=== PATIENT | male | born 1980 | race African-American/Black ===

== ENCOUNTER 2020-11-28 14:16 | Inpatient (IN) | payer BC ==
[2020-11-28] MEDS ORDERED: ONDANSETRON 4 MG/2 ML VIAL IVPUSH ONE (15:55)
[2020-11-28] MEDS ORDERED: LABETALOL HCL 5 MG/1 ML (100MG/20 ML VIAL) IVPUSH ONE (16:08)
[2020-11-28] MEDS ORDERED: amLODIPine BESYLATE 5 MG TABLET (FP) PO ONE (16:09)
[2020-11-28 17:12] LABS: INR 1.07 (0.83-1.09); PROTHROMBIN TIME (PATIENT) 12.9 SEC (9.7-13.0)
[2020-11-28] MEDS ORDERED: SODIUM CHLORIDE 250 ML IV PRN (17:26)
[2020-11-28 17:28] LABS: BASO % 1.4 % (0-2.0); HEMATOCRIT 46.3 % (35.4-49); HEMOGLOBIN 15.7 GM/dL (11.7-16.9); LYMPH % 6.9 % (8-40); MCHC 33.9 g/dl (32.0-35.9); MEAN CELL VOLUME 85.7 fl (80-96); MEAN PLT VOLUME 8.9 fl (7.5-11.1); MONO % 4.8 % (3.8-10.2); NEUT % 86.9 % (42.8-82.8); PLATELET COUNT 113 K/MM3 (134-434); RDW 15.9 % (11.9-15.9); WHITE BLOOD COUNT 12.2 K/mm3 (4.0-10.0)
[2020-11-28] MEDS ORDERED: ONDANSETRON *ODT* 4 MG TABLET SL ONE (18:34)
[2020-11-28 18:42] LABS: POTASSIUM 4.8 mmol/L (3.5-5.1)
[2020-11-28 18:43] LABS: CALCIUM 8.5 mg/dL (8.5-10.1)
[2020-11-28 18:44] LABS: MAGNESIUM 1.5 mg/dL (1.8-2.4)
[2020-11-28 18:47] LABS: PHOSPHOROUS 4.4 mg/dL (2.5-4.9)
[2020-11-28 18:57] LABS: BLOOD UREA NITROGEN 138.4 mg/dL (7-18); CREATININE 21.5 mg/dL (0.55-1.3)
[2020-11-28 19:12] LABS: N-TERMINAL BNP 70346.4 pg/ml (5-125)
[2020-11-28] MEDS ORDERED: amLODIPine BESYLATE 5 MG TABLET (FP) ONE (19:16)
[2020-11-28] MEDS ORDERED: ONDANSETRON *ODT* 4 MG TABLET ONE (19:16)
[2020-11-28] MEDS: INSULIN SLIDING SCALE (NOVOLOG) 1 VIAL SQ SCH (23:02)
[2020-11-28] MEDS ORDERED: HEPARIN NA (PORCINE) 5,000 UNITS/ML 1ML VIAL ONE (23:56)
[2020-11-29] MEDS: HEPARIN NA (PORCINE) 5,000 UNITS/ML 1ML VIAL SQ SCH ×4 (00:23→22:29)
[2020-11-29] MEDS ORDERED: FAMOTIDINE 20 MG TABLET PO ONE (05:18)
[2020-11-29] MEDS ORDERED: HEPARIN NA (PORCINE) 5,000 UNITS/ML 1ML VIAL ONE ×2 (05:26→17:41)
[2020-11-29] MEDS: INSULIN SLIDING SCALE (NOVOLOG) 1 VIAL SQ SCH ×8 (08:40→22:29)
[2020-11-29 09:00] LABS: HEMATOCRIT 36.1 % (35.4-49); HEMOGLOBIN 12.2 GM/dL (11.7-16.9); LYMPH % 6.6 % (8-40); MCH 28.9 pg (25.7-33.7); MCHC 33.9 g/dl (32.0-35.9); MEAN CELL VOLUME 85.2 fl (80-96); MEAN PLT VOLUME 9.5 fl (7.5-11.1); NEUT % 86.4 % (42.8-82.8); PLATELET COUNT 86 K/MM3 (134-434); RBC 4.24 M/mm3 (4.00-5.60); RDW 15.3 % (11.9-15.9); WHITE BLOOD COUNT 11.7 K/mm3 (4.0-10.0)
[2020-11-29 09:17] LABS: POTASSIUM 4.1 mmol/L (3.5-5.1)
[2020-11-29 09:31] LABS: ALBUMIN 2.6 g/dl (3.4-5.0); MAGNESIUM 1.6 mg/dL (1.8-2.4)
[2020-11-29 09:34] LABS: BILIRUBIN,TOTAL 0.5 mg/dL (0.2-1); PHOSPHOROUS 4.3 mg/dL (2.5-4.9)
[2020-11-29 09:47] LABS: BLOOD UREA NITROGEN 98.9 mg/dL (7-18)
[2020-11-29 09:58] LABS: CREATININE 16.4 mg/dL (0.55-1.3)
[2020-11-29] MEDS ORDERED: SODIUM CHLORIDE 250 ML IV PRN (11:10)
[2020-11-29] MEDS ORDERED: MAG HYDROX/AL HYDROX/SIMETH 30 ML UNIT-DOSE CUP PO PRN (11:20)
[2020-11-29] MEDS ORDERED: ONDANSETRON 4 MG/2 ML VIAL IVPUSH PRN (11:21)
[2020-11-29] MEDS ORDERED: FAMOTIDINE 20 MG/50 ML IVPB 20 MG/50 ML MG IVPB SCH (11:30)
[2020-11-29] MEDS ORDERED: amLODIPine BESYLATE 5 MG TABLET (FP) ONE (11:31)
[2020-11-29] MEDS ORDERED: MAG HYDROX/AL HYDROX/SIMETH 30 ML UNIT-DOSE CUP ONE (11:31)
[2020-11-29] MEDS: amLODIPine BESYLATE 5 MG TABLET (FP) PO SCH (11:38)
[2020-11-29] MEDS: LABETALOL HCL 100 MG TABLET (FP) PO SCH ×2 (12:29→22:29)
[2020-11-29] MEDS: PANTOPRAZOLE 20 MG TABLET PO SCH (12:29)
[2020-11-29] MEDS ORDERED: cloNIDine HCL 0.1 MG TABLET PO ONE (12:45)
[2020-11-29] MEDS ORDERED: cloNIDine HCL 0.1 MG TABLET ONE (17:41)
[2020-11-29] MEDS: INSULIN (LEVEMIR) 100 UNITS/ML UNITS SQ SCH (22:29)
[2020-11-29 23:50] VITALS: BMI 27.9
[2020-11-30] MEDS: INSULIN SLIDING SCALE (NOVOLOG) 1 VIAL SQ SCH ×7 (06:46→22:18)
[2020-11-30] MEDS: HEPARIN NA (PORCINE) 5,000 UNITS/ML 1ML VIAL SQ SCH (06:46)
[2020-11-30] MEDS: amLODIPine BESYLATE 5 MG TABLET (FP) PO SCH (09:49)
[2020-11-30] MEDS: PANTOPRAZOLE 20 MG TABLET PO SCH (09:49)
[2020-11-30] MEDS: LABETALOL HCL 100 MG TABLET (FP) PO SCH ×2 (09:49→22:16)
[2020-11-30 13:24] LABS: BASO % 1.8 % (0-2.0); HEMATOCRIT 30.9 % (35.4-49); HEMOGLOBIN 10.5 GM/dL (11.7-16.9); LYMPH % 15.1 % (8-40); MCH 29.3 pg (25.7-33.7); MCHC 33.8 g/dl (32.0-35.9); MEAN CELL VOLUME 86.5 fl (80-96); MEAN PLT VOLUME 9.7 fl (7.5-11.1); MONO % 7.7 % (3.8-10.2); NEUT % 74.4 % (42.8-82.8); PLATELET COUNT 88 K/MM3 (134-434); RBC 3.57 M/mm3 (4.00-5.60); RDW 15.4 % (11.9-15.9); WHITE BLOOD COUNT 7.5 K/mm3 (4.0-10.0)
[2020-11-30 13:43] LABS: POTASSIUM 3.7 mmol/L (3.5-5.1)
[2020-11-30 13:46] LABS: CALCIUM 7.9 mg/dL (8.5-10.1)
[2020-11-30] MEDS ORDERED: HEPARIN NA (PORCINE) 5,000 UNITS/ML 1ML VIAL IVPUSH PRN (13:53)
[2020-11-30 13:58] LABS: BLOOD UREA NITROGEN 73.1 mg/dL (7-18)
[2020-11-30] MEDS ORDERED: HEPARIN - 25,000 UNIT in SODIUM CHLORIDE 495 ML IV SCH (14:00)
[2020-11-30 14:01] LABS: CREATININE 13.3 mg/dL (0.55-1.3)
[2020-11-30] MEDS: HEPARIN - 25,000 UNIT in SODIUM CHLORIDE 495 ML IV SCH (15:57)
[2020-11-30] MEDS ORDERED: SODIUM CHLORIDE 250 ML IV PRN (18:15)
[2020-11-30] MEDS: INSULIN (LEVEMIR) 100 UNITS/ML UNITS SQ SCH (22:16)
[2020-11-30] MEDS: HEPARIN NA (PORCINE) 5,000 UNITS/ML 1ML VIAL IVPUSH PRN (23:10)
[2020-12-01] MEDS: INSULIN SLIDING SCALE (NOVOLOG) 1 VIAL SQ SCH ×4 (06:32→22:03)
[2020-12-01] MEDS: HEPARIN NA (PORCINE) 5,000 UNITS/ML 1ML VIAL IVPUSH PRN (09:04)
[2020-12-01] MEDS ORDERED: ALTEPLASE 2 MG VIAL CVP ONE ×2 (09:45)
[2020-12-01] MEDS ORDERED: LABETALOL HCL 100 MG TABLET (FP) PO SCH (11:12)
[2020-12-01] MEDS: amLODIPine BESYLATE 5 MG TABLET (FP) PO SCH (12:15)
[2020-12-01] MEDS: LABETALOL HCL 100 MG TABLET (FP) PO SCH ×3 (12:15→22:03)
[2020-12-01 13:24] LABS: HEMATOCRIT 26.9 % (35.4-49); HEMOGLOBIN 9.2 GM/dL (11.7-16.9); MCH 29.2 pg (25.7-33.7); MCHC 34.1 g/dl (32.0-35.9); MEAN CELL VOLUME 85.7 fl (80-96); MEAN PLT VOLUME 10.2 fl (7.5-11.1); PLATELET COUNT 103 K/MM3 (134-434); RBC 3.14 M/mm3 (4.00-5.60); RDW 15.2 % (11.9-15.9); WHITE BLOOD COUNT 6.9 K/mm3 (4.0-10.0)
[2020-12-01 13:51] LABS: ALBUMIN 2.6 g/dl (3.4-5.0); BLOOD UREA NITROGEN 54.2 mg/dL (7-18); CALCIUM 7.8 mg/dL (8.5-10.1)
[2020-12-01 13:52] LABS: MAGNESIUM 1.8 mg/dL (1.8-2.4)
[2020-12-01 13:55] LABS: PHOSPHOROUS 1.9 mg/dL (2.5-4.9)
[2020-12-01 13:56] LABS: BILIRUBIN,TOTAL 0.5 mg/dL (0.2-1); TOT PROT 5.1 g/dl (6.4-8.2)
[2020-12-01 14:02] LABS: CREATININE 9.2 mg/dL (0.55-1.3)
[2020-12-01] MEDS: HEPARIN - 25,000 UNIT in SODIUM CHLORIDE 495 ML IV SCH (15:37)
[2020-12-01] MEDS ORDERED: MAGNESIUM HYDROX 2400MG/30ML ORAL SUSPENSION 30 ML CUP PO PRN (19:04)
[2020-12-01] MEDS: INSULIN (LEVEMIR) 100 UNITS/ML UNITS SQ SCH (22:01)
[2020-12-02] MEDS: INSULIN SLIDING SCALE (NOVOLOG) 1 VIAL SQ SCH ×4 (06:18→21:29)
[2020-12-02] MEDS: amLODIPine BESYLATE 5 MG TABLET (FP) PO SCH ×2 (08:57→19:44)
[2020-12-02] MEDS: LABETALOL HCL 100 MG TABLET (FP) PO SCH ×4 (08:57→21:29)
[2020-12-02 09:10] LABS: HEMATOCRIT 27.2 % (35.4-49); HEMOGLOBIN 9.3 GM/dL (11.7-16.9); MCH 29.5 pg (25.7-33.7); MCHC 34.3 g/dl (32.0-35.9); MEAN CELL VOLUME 86.1 fl (80-96); MEAN PLT VOLUME 10.1 fl (7.5-11.1); PLATELET COUNT 134 K/MM3 (134-434); RBC 3.16 M/mm3 (4.00-5.60); RDW 15.1 % (11.9-15.9); WHITE BLOOD COUNT 5.9 K/mm3 (4.0-10.0)
[2020-12-02] MEDS ORDERED: amLODIPine BESYLATE 5 MG TABLET (FP) PO ONE ×2 (10:17→16:45)
[2020-12-02 10:25] LABS: BLOOD UREA NITROGEN 33.5 mg/dL (7-18); CALCIUM 8.1 mg/dL (8.5-10.1); MAGNESIUM 1.8 mg/dL (1.8-2.4); PHOSPHOROUS 3.6 mg/dL (2.5-4.9); POTASSIUM 3.3 mmol/L (3.5-5.1)
[2020-12-02 10:32] LABS: CREATININE 9.1 mg/dL (0.55-1.3)
[2020-12-02 11:55] LABS: INR 1.05 (0.83-1.09); PROTHROMBIN TIME (PATIENT) 12.7 SEC (9.7-13.0)
[2020-12-02 11:58] LABS: ACTIVATED PTT 52.4 SECONDS (25.2-36.5)
[2020-12-02] MEDS: HEPARIN - 25,000 UNIT in SODIUM CHLORIDE 495 ML IV SCH ×2 (12:19→15:32)
[2020-12-02] MEDS ORDERED: SODIUM CHLORIDE 250 ML IV PRN (13:19)
[2020-12-02] MEDS ORDERED: hydrALAZINE HCL 10 MG TABLET PO SCH (14:00)
[2020-12-02] MEDS: hydrALAZINE HCL 10 MG TABLET PO SCH ×2 (20:14→21:28)
[2020-12-02] MEDS: INSULIN (LEVEMIR) 100 UNITS/ML UNITS SQ SCH (21:28)
[2020-12-03] MEDS: hydrALAZINE HCL 10 MG TABLET PO SCH ×2 (06:33→15:17)
[2020-12-03] MEDS: INSULIN SLIDING SCALE (NOVOLOG) 1 VIAL SQ SCH ×2 (06:34→12:08)
[2020-12-03 08:21] LABS: BASO % 1.3 % (0-2.0); EOS % 3.2 % (0-4.5); HEMATOCRIT 28.6 % (35.4-49); HEMOGLOBIN 9.7 GM/dL (11.7-16.9); LYMPH % 11.8 % (8-40); MCH 29.5 pg (25.7-33.7); MCHC 33.9 g/dl (32.0-35.9); MEAN CELL VOLUME 86.8 fl (80-96); MEAN PLT VOLUME 9.4 fl (7.5-11.1); MONO % 8.4 % (3.8-10.2); NEUT % 75.3 % (42.8-82.8); PLATELET COUNT 154 K/MM3 (134-434); RBC 3.29 M/mm3 (4.00-5.60); RDW 15.3 % (11.9-15.9); WHITE BLOOD COUNT 6.5 K/mm3 (4.0-10.0)
[2020-12-03 08:29] LABS: INR 0.96 (0.83-1.09); PROTHROMBIN TIME (PATIENT) 11.8 SEC (9.7-13.0)
[2020-12-03 08:58] LABS: POTASSIUM 3.5 mmol/L (3.5-5.1)
[2020-12-03 09:05] LABS: CALCIUM 8.6 mg/dL (8.5-10.1)
[2020-12-03 09:06] LABS: ALBUMIN 2.8 g/dl (3.4-5.0); BLOOD UREA NITROGEN 43.5 mg/dL (7-18); MAGNESIUM 2.1 mg/dL (1.8-2.4)
[2020-12-03 09:09] LABS: PHOSPHOROUS 4.1 mg/dL (2.5-4.9)
[2020-12-03 09:10] LABS: TOT PROT 5.4 g/dl (6.4-8.2)
[2020-12-03 09:11] LABS: BILIRUBIN,TOTAL 0.8 mg/dL (0.2-1)
[2020-12-03 09:58] LABS: ACTIVATED PTT 29.6 SECONDS (25.2-36.5)
[2020-12-03] MEDS: LABETALOL HCL 100 MG TABLET (FP) PO SCH ×2 (10:36→12:31)
[2020-12-03] MEDS: amLODIPine BESYLATE 10 MG TABLET (FP) PO SCH ×2 (10:36→12:31)
[2020-12-03 12:35] VITALS: TEMP 98.8
[2020-12-03 16:29] VITALS: BP 139/93; PULSE 94
== END 2020-12-03 16:45 | disposition home or self-care (01) | DRG 291 ==
LOC: JER 14:16 → JERBED 18:47 → J6S 11-29 21:21
PROVIDERS: ADMIT Internal Medicine; ATTEND Student in an Organized Health Care Education/Training Program
PROC: 5A1D70Z Performance of Urinary Filtration, Intermittent, Less than 6 Hours Per Day (ICD-10-PCS; principal; 2020-11-28)
PROC: 5A1D70Z Performance of Urinary Filtration, Intermittent, Less than 6 Hours Per Day (ICD-10-PCS; 2020-11-29)
PROC: 5A1D70Z Performance of Urinary Filtration, Intermittent, Less than 6 Hours Per Day (ICD-10-PCS; 2020-12-01)
PROC: 5A1D70Z Performance of Urinary Filtration, Intermittent, Less than 6 Hours Per Day (ICD-10-PCS; 2020-12-03)
DX: I13.2 Hypertensive heart and chronic kidney disease with heart failure and with stage 5 chronic kidney disease, or end stage renal disease (principal); N18.6 End stage renal disease; I24.8 Other forms of acute ischemic heart disease; T82.868A Thrombosis due to vascular prosthetic devices, implants and grafts, initial encounter; R00.0 Tachycardia, unspecified; E11.22 Type 2 diabetes mellitus with diabetic chronic kidney disease; E11.65 Type 2 diabetes mellitus with hyperglycemia; E83.42 Hypomagnesemia; I16.0 Hypertensive urgency; D69.6 Thrombocytopenia, unspecified; Y83.8 Other surgical procedures as the cause of abnormal reaction of the patient, or of later complication, without mention of misadventure at the time of the procedure; Z99.2 Dependence on renal dialysis; I50.9 Heart failure, unspecified; D63.1 Anemia in chronic kidney disease
CPT/HCPCS: 36415; 36598; 71045-TC-FY; 76775-TC; 80048; 80053; 80061; 82550; 82553; 82962; 83036; 83605; 83690; 83721; 83735; 83880; 84100; 84443; 84484; 85025; 85027; 85610; 85730; 86803; 87040; 87340; 93005; 93010; 93306-TC; 99285-25; C9803; J0735; J1644; J2997; Q0162; U0003

== ENCOUNTER 2021-11-16 12:38 | Observation (INO) | payer BC ==
[2021-11-16 13:44] LABS: EOS % 0.1 % (0-4.5); HEMATOCRIT 37.1 % (35.4-49); HEMOGLOBIN 12.3 GM/dL (11.7-16.9); LYMPH % 7.1 % (8-40); MCH 28.8 pg (25.7-33.7); MCHC 33.3 g/dl (32.0-35.9); MEAN CELL VOLUME 86.7 fl (80-96); MEAN PLT VOLUME 8.4 fl (7.5-11.1); MONO % 5.5 % (3.8-10.2); NEUT % 86.3 % (42.8-82.8); PLATELET COUNT 221 10^3/uL (134-434); RBC 4.28 M/mm3 (4.00-5.60); RDW 14.3 % (11.9-15.9); WHITE BLOOD COUNT 8.3 K/mm3 (4.0-10.0)
[2021-11-16 13:49] LABS: INR 1.13 (0.83-1.09)
[2021-11-16 13:52] LABS: ACTIVATED PTT 32.6 SECONDS (25.2-36.5)
[2021-11-16 14:09] LABS: CHLORIDE 98 mmol/L (98-107); SODIUM 133 mmol/L (136-145)
[2021-11-16 14:11] LABS: CALCIUM 9.4 mg/dL (8.5-10.1)
[2021-11-16 14:12] LABS: ALBUMIN 4.5 g/dl (3.4-5.0); ANION GAP 9 MMOL/L (8-16); BLOOD UREA NITROGEN 34.9 mg/dL (7-18); CO2 26 mmol/L (21-32); GLUCOSE,RANDOM 191 mg/dL (74-106); MAGNESIUM 2.4 mg/dL (1.8-2.4)
[2021-11-16 14:15] LABS: SGOT/AST 9 U/L (15-37); SGPT/ALT 19 U/L (13-61)
[2021-11-16 14:16] LABS: BILIRUBIN,TOTAL 0.4 mg/dL (0.2-1); TOT PROT 8.5 g/dl (6.4-8.2)
[2021-11-16 14:18] LABS: ALK PHOS 56 U/L (45-117)
[2021-11-16 14:23] LABS: CREATININE 11.1 mg/dL (0.55-1.3)
[2021-11-16] MEDS: ASPIRIN COATED 81 MG TABLET.EC PO SCH (15:30)
[2021-11-16] MEDS: INSULIN SLIDING SCALE (NOVOLOG) 1 VIAL SQ SCH ×2 (16:45→22:50)
[2021-11-16] MEDS ORDERED: ASPIRIN COATED 81 MG TABLET.EC ONE (21:13)
[2021-11-16] MEDS: CARVEDILOL 3.125 MG TABLET (FP) PO SCH (22:50)
[2021-11-16 22:58] VITALS: BMI 24.0
[2021-11-17] MEDS ORDERED: HEPARIN NA (PORCINE) 5,000 UNITS/ML 1ML VIAL IVPUSH PRN ×2 (03:46)
[2021-11-17] MEDS ORDERED: HEPARIN NA (PORCINE) 5,000 UNITS/ML 1ML VIAL IVPUSH ONE (03:46)
[2021-11-17] MEDS ORDERED: HEPARIN INFUSION - 25,000 UNITS/500 ML INFUS.BAG IVPB SCH (04:00)
[2021-11-17 06:13] LABS: HEMATOCRIT 33.8 % (35.4-49); HEMOGLOBIN 11.2 GM/dL (11.7-16.9); MCH 28.8 pg (25.7-33.7); MCHC 33.2 g/dl (32.0-35.9); MEAN CELL VOLUME 86.7 fl (80-96); MEAN PLT VOLUME 8.9 fl (7.5-11.1); PLATELET COUNT 219 10^3/uL (134-434); RDW 14.1 % (11.9-15.9); WHITE BLOOD COUNT 7.6 K/mm3 (4.0-10.0)
[2021-11-17] MEDS: INSULIN SLIDING SCALE (NOVOLOG) 1 VIAL SQ SCH ×3 (06:40→16:54)
[2021-11-17] MEDS ORDERED: CLOPIDOGREL BISULFATE 300 MG TABLET PO ONE (09:00)
[2021-11-17] MEDS ORDERED: amLODIPine BESYLATE 5 MG TABLET (FP) PO SCH (10:00)
[2021-11-17] MEDS: CARVEDILOL 3.125 MG TABLET (FP) PO SCH (11:30)
[2021-11-17] MEDS: ASPIRIN COATED 81 MG TABLET.EC PO SCH (11:30)
[2021-11-17] MEDS ORDERED: EPOETIN ALFA-EPBX 4,000 UNIT/ML VIAL SQ ONE (11:32)
[2021-11-17] MEDS ORDERED: SODIUM CHLORIDE 250 ML IV PRN (11:32)
[2021-11-17] MEDS ORDERED: amLODIPine BESYLATE 5 MG TABLET (FP) PO ONE (17:14)
[2021-11-17 18:20] VITALS: BP 145/108; PULSE 76; TEMP 98.7
[2021-11-17] MEDS ORDERED: ATORVASTATIN CA 40 MG TABLET (FP) PO SCH (22:00)
[2021-11-18] MEDS ORDERED: CLOPIDOGREL BISULFATE 75 MG TABLET (FP) PO SCH (10:00)
== END 2021-11-17 19:32 | disposition short-term general hospital (02) ==
LOC: JER 12:38 → UNDOADMOB 14:50 → INTOOBSV 14:50 → JERBED 14:50 → J4S 22:34
PROVIDERS: ADMIT Internal Medicine; ATTEND Internal Medicine
PROC: 3E033GC Introduction of Other Therapeutic Substance into Peripheral Vein, Percutaneous Approach (ICD-10-PCS; principal; 2021-11-16)
PROC: 3E033GC Introduction of Other Therapeutic Substance into Peripheral Vein, Percutaneous Approach (ICD-10-PCS; 2021-11-16)
DX: E11.22 Type 2 diabetes mellitus with diabetic chronic kidney disease (principal); I24.9 Acute ischemic heart disease, unspecified; N18.6 End stage renal disease; Z99.2 Dependence on renal dialysis
CPT/HCPCS: 36415; 71045-TC-FY; 80053; 80061; 82962; 83036; 83735; 84100; 84439; 84443; 84484; 85025; 85027; 85610; 85730; 86850; 86900; 86901; 93005; 93010; 93306-TC; 99285-25; C9803; G0378; J1644; U0003; U0005

== ENCOUNTER 2021-12-09 17:27 | Inpatient (IN) | payer BC ==
[2021-12-09 17:56] VITALS: BMI 27.2
[2021-12-09] MEDS ORDERED: LABETALOL HCL 5 MG/1 ML (100MG/20 ML VIAL) IVPUSH ONE (18:34)
[2021-12-09] MEDS ORDERED: LABETALOL HCL 5 MG/1 ML (200MG/40ML VIAL) IVPB ONE (18:38)
[2021-12-09 18:56] LABS: BASO % 1.4 % (0-2.0); HEMATOCRIT 24.7 % (35.4-49); HEMOGLOBIN 8.5 GM/dL (11.7-16.9); LYMPH % 18.4 % (8-40); MCH 29.8 pg (25.7-33.7); MCHC 34.2 g/dl (32.0-35.9); MEAN CELL VOLUME 87.1 fl (80-96); MEAN PLT VOLUME 8.8 fl (7.5-11.1); MONO % 6.3 % (3.8-10.2); NEUT % 70.9 % (42.8-82.8); PLATELET COUNT 226 10^3/uL (134-434); RBC 2.84 M/mm3 (4.00-5.60); RDW 15.5 % (11.9-15.9); WHITE BLOOD COUNT 6.5 K/mm3 (4.0-10.0)
[2021-12-09] MEDS ORDERED: SODIUM CHLORIDE 250 ML IV PRN (18:58)
[2021-12-09 19:02] LABS: INR 1.06 (0.83-1.09); PROTHROMBIN TIME (PATIENT) 12.2 SEC (9.7-13.0)
[2021-12-09 19:21] LABS: CHLORIDE 102 mmol/L (98-107); SODIUM 137 mmol/L (136-145)
[2021-12-09 19:24] LABS: CALCIUM 9.1 mg/dL (8.5-10.1)
[2021-12-09 19:25] LABS: ALBUMIN 3.3 g/dl (3.4-5.0); ANION GAP 12 MMOL/L (8-16); BLOOD UREA NITROGEN 66.7 mg/dL (7-18); CO2 23 mmol/L (21-32); GLUCOSE,RANDOM 172 mg/dL (74-106); MAGNESIUM 2.1 mg/dL (1.8-2.4)
[2021-12-09 19:28] LABS: SGOT/AST 17 U/L (15-37); SGPT/ALT 34 U/L (13-61)
[2021-12-09 19:29] LABS: TOT PROT 6.2 g/dl (6.4-8.2)
[2021-12-09 19:31] LABS: BILIRUBIN,TOTAL 0.3 mg/dL (0.2-1)
[2021-12-09 19:34] LABS: ALK PHOS 46 U/L (45-117)
[2021-12-09 22:23] VITALS: TEMP 98.2
[2021-12-10] MEDS ORDERED: hydrALAZINE HCL 25 MG TABLET (FP) ONE (00:34)
[2021-12-10] MEDS ORDERED: LABETALOL HCL 100 MG TABLET (FP) ONE ×2 (00:35→09:59)
[2021-12-10] MEDS ORDERED: HEPARIN NA (PORCINE) 5,000 UNITS/ML 1ML VIAL ONE ×2 (00:35→07:52)
[2021-12-10] MEDS: hydrALAZINE HCL 50 MG TABLET (FP) PO SCH ×2 (00:42→09:25)
[2021-12-10] MEDS: LABETALOL HCL 200 MG TABLET (FP) PO SCH ×2 (00:43→10:03)
[2021-12-10] MEDS: HEPARIN NA (PORCINE) 5,000 UNITS/ML 1ML VIAL SQ SCH ×2 (00:43→08:03)
[2021-12-10 06:27] LABS: CHLORIDE 104 mmol/L (98-107); SODIUM 141 mmol/L (136-145)
[2021-12-10 06:31] LABS: CALCIUM 8.4 mg/dL (8.5-10.1)
[2021-12-10 06:32] LABS: ALBUMIN 3.3 g/dl (3.4-5.0); ANION GAP 8 MMOL/L (8-16); CO2 29 mmol/L (21-32); GLUCOSE,RANDOM 120 mg/dL (74-106); MAGNESIUM 2.1 mg/dL (1.8-2.4)
[2021-12-10 06:35] LABS: PHOSPHOROUS 3.9 mg/dL (2.5-4.9); SGOT/AST 11 U/L (15-37); SGPT/ALT 32 U/L (13-61)
[2021-12-10 06:36] LABS: BILIRUBIN,TOTAL 0.3 mg/dL (0.2-1)
[2021-12-10 06:37] LABS: TOT PROT 6.3 g/dl (6.4-8.2)
[2021-12-10 06:38] LABS: ALK PHOS 45 U/L (45-117)
[2021-12-10 07:18] LABS: BASO % 1.2 % (0-2.0); EOS % 1.2 % (0-4.5); HEMATOCRIT 26.7 % (35.4-49); LYMPH % 9.2 % (8-40); MCH 29.3 pg (25.7-33.7); MCHC 33.7 g/dl (32.0-35.9); MEAN CELL VOLUME 86.9 fl (80-96); MEAN PLT VOLUME 8.5 fl (7.5-11.1); NEUT % 82.4 % (42.8-82.8); PLATELET COUNT 225 10^3/uL (134-434); RBC 3.07 M/mm3 (4.00-5.60); RDW 15.2 % (11.9-15.9); WHITE BLOOD COUNT 6.1 K/mm3 (4.0-10.0)
[2021-12-10 07:55] LABS: BLOOD UREA NITROGEN 32.3 mg/dL (7-18); CREATININE 9.7 mg/dL (0.55-1.3)
[2021-12-10] MEDS ORDERED: SEVELAMER CARBONATE 800 MG TAB (FP) PO SCH (08:00)
[2021-12-10 09:55] VITALS: BP 154/99; PULSE 78
[2021-12-10] MEDS ORDERED: PANTOPRAZOLE 40 MG TABLET ONE (09:58)
[2021-12-10] MEDS ORDERED: LISINOPRIL 20 MG TABLET ONE (09:59)
[2021-12-10] MEDS ORDERED: amLODIPine BESYLATE 10 MG TABLET (FP) ONE (09:59)
[2021-12-10] MEDS ORDERED: LISINOPRIL 20 MG TABLET PO SCH (10:00)
[2021-12-10] MEDS ORDERED: PANTOPRAZOLE 40 MG TABLET PO SCH (10:00)
[2021-12-10] MEDS ORDERED: amLODIPine BESYLATE 10 MG TABLET (FP) PO SCH (10:00)
== END 2021-12-10 11:11 | disposition home or self-care (01) | DRG 304 ==
LOC: JER 17:27 → JERBED 18:59 → OBSVTOIN 18:59
PROVIDERS: ADMIT Internal Medicine; ATTEND Nurse Practitioner Acute Care
PROC: 5A1D70Z Performance of Urinary Filtration, Intermittent, Less than 6 Hours Per Day (ICD-10-PCS; principal; 2021-12-09)
DX: I16.0 Hypertensive urgency (principal); N18.6 End stage renal disease; I12.0 Hypertensive chronic kidney disease with stage 5 chronic kidney disease or end stage renal disease; Z99.2 Dependence on renal dialysis; E11.22 Type 2 diabetes mellitus with diabetic chronic kidney disease; D63.1 Anemia in chronic kidney disease; E11.65 Type 2 diabetes mellitus with hyperglycemia
CPT/HCPCS: 36415; 71046-TC-FY; 80053; 82728; 83540; 83550; 83735; 84100; 84484; 85025; 85045; 85610; 86803; 87340; 93005; 93010; 99285-25; C9803-CS; G0378; U0003; U0005

== ENCOUNTER 2022-01-15 18:39 | Observation (INO) | payer BC ==
[2022-01-15 18:49] VITALS: BMI 27.6
[2022-01-15 22:28] LABS: BASO % 1.6 % (0-2.0); EOS % 1.9 % (0-4.5); HEMATOCRIT 32.6 % (35.4-49); HEMOGLOBIN 10.7 GM/dL (11.7-16.9); LYMPH % 9.5 % (8-40); MCH 29.6 pg (25.7-33.7); MCHC 32.9 g/dl (32.0-35.9); MEAN CELL VOLUME 89.9 fl (80-96); MONO % 5.7 % (3.8-10.2); NEUT % 81.3 % (42.8-82.8); PLATELET COUNT 338 10^3/uL (134-434); RBC 3.63 M/mm3 (4.00-5.60); WHITE BLOOD COUNT 11.2 K/mm3 (4.0-10.0)
[2022-01-15 22:48] LABS: CHLORIDE 104 mmol/L (98-107); SODIUM 142 mmol/L (136-145)
[2022-01-15 22:50] LABS: ANION GAP 16 MMOL/L (8-16); BLOOD UREA NITROGEN 79.6 mg/dL (7-18); CALCIUM 8.3 mg/dL (8.5-10.1); CO2 23 mmol/L (21-32); GLUCOSE,RANDOM 88 mg/dL (74-106)
[2022-01-15 22:53] LABS: SGPT/ALT 40 U/L (13-61)
[2022-01-15 22:54] LABS: SGOT/AST 18 U/L (15-37)
[2022-01-15 22:55] LABS: BILIRUBIN,TOTAL 0.4 mg/dL (0.2-1); TOT PROT 6.2 g/dl (6.4-8.2)
[2022-01-15 22:56] LABS: ALK PHOS 57 U/L (45-117)
[2022-01-15 23:34] LABS: CREATININE 20.2 mg/dL (0.55-1.3)
[2022-01-16] MEDS ORDERED: SODIUM POLYSTYRENE SULFONATE 15 GM/60 ML BOTTLE PO ONE ×2 (00:04→00:16)
[2022-01-16] MEDS ORDERED: SODIUM POLYSTYRENE SULFONATE 15 GM/60 ML BOTTLE ONE (00:15)
[2022-01-16] MEDS ORDERED: CARVEDILOL 6.25 MG TABLET (FP) PO ONE (00:52)
[2022-01-16] MEDS ORDERED: CARVEDILOL 6.25 MG TABLET (FP) ONE (00:58)
[2022-01-16] MEDS ORDERED: ONDANSETRON *ODT* 4 MG TABLET SL ONE (01:00)
[2022-01-16] MEDS ORDERED: ONDANSETRON *ODT* 4 MG TABLET ONE (01:01)
[2022-01-16] MEDS ORDERED: LABETALOL HCL 5 MG/1 ML (100MG/20 ML VIAL) IVPUSH ONE ×2 (01:30→09:34)
[2022-01-16] MEDS ORDERED: LABETALOL HCL 5 MG/1 ML (200MG/40ML VIAL) IVPB ONE (02:12)
[2022-01-16 07:14] LABS: CHLORIDE 101 mmol/L (98-107); SODIUM 139 mmol/L (136-145)
[2022-01-16 07:16] LABS: CALCIUM 8.5 mg/dL (8.5-10.1); CO2 25 mmol/L (21-32); GLUCOSE,RANDOM 99 mg/dL (74-106); MAGNESIUM 2.4 mg/dL (1.8-2.4)
[2022-01-16] MEDS ORDERED: amLODIPine BESYLATE 10 MG TABLET (FP) ONE ×2 (07:24→08:37)
[2022-01-16] MEDS: amLODIPine BESYLATE 10 MG TABLET (FP) PO SCH ×2 (07:37→09:34)
[2022-01-16 07:43] LABS: ANION GAP 13 MMOL/L (8-16); CREATININE 20.3 mg/dL (0.55-1.3); PHOSPHOROUS 9.8 mg/dL (2.5-4.9)
[2022-01-16] MEDS: SEVELAMER CARBONATE 800 MG TAB (FP) PO SCH ×3 (07:51→21:29)
[2022-01-16] MEDS ORDERED: ACETAMINOPHEN 325 MG TABLET (FP) PO PRN (08:14)
[2022-01-16] MEDS ORDERED: PANTOPRAZOLE 20 MG TABLET PO ONE (08:36)
[2022-01-16] MEDS ORDERED: LISINOPRIL 20 MG TABLET ONE (08:36)
[2022-01-16] MEDS: LABETALOL HCL 200 MG TABLET (FP) PO SCH ×2 (09:34→21:29)
[2022-01-16] MEDS: LISINOPRIL 20 MG TABLET PO SCH (09:34)
[2022-01-16] MEDS: PANTOPRAZOLE 40 MG TABLET PO SCH (09:34)
[2022-01-16] MEDS: INSULIN SLIDING SCALE (NOVOLOG) 1 VIAL SQ SCH ×3 (14:44→21:30)
[2022-01-16] MEDS: HEPARIN NA (PORCINE) 5,000 UNITS/ML 1ML VIAL SQ SCH ×2 (14:45→21:31)
[2022-01-16] MEDS ORDERED: SODIUM CHLORIDE 250 ML IV PRN (14:56)
[2022-01-17] MEDS: SEVELAMER CARBONATE 800 MG TAB (FP) PO SCH ×4 (05:37→18:32)
[2022-01-17] MEDS: HEPARIN NA (PORCINE) 5,000 UNITS/ML 1ML VIAL SQ SCH ×4 (05:50→22:22)
[2022-01-17] MEDS: INSULIN SLIDING SCALE (NOVOLOG) 1 VIAL SQ SCH ×4 (06:00→22:21)
[2022-01-17 08:47] LABS: HEMATOCRIT 29.3 % (35.4-49); HEMOGLOBIN 9.7 GM/dL (11.7-16.9); MCH 29.9 pg (25.7-33.7); MCHC 33.1 g/dl (32.0-35.9); MEAN CELL VOLUME 90.3 fl (80-96); MEAN PLT VOLUME 9.2 fl (7.5-11.1); PLATELET COUNT 259 10^3/uL (134-434); RBC 3.24 M/mm3 (4.00-5.60); RDW 16.1 % (11.9-15.9); WHITE BLOOD COUNT 6.9 K/mm3 (4.0-10.0)
[2022-01-17 09:06] LABS: CHLORIDE 107 mmol/L (98-107); SODIUM 146 mmol/L (136-145)
[2022-01-17 09:11] LABS: CALCIUM 8.3 mg/dL (8.5-10.1)
[2022-01-17 09:12] LABS: ANION GAP 10 MMOL/L (8-16); CO2 29 mmol/L (21-32); GLUCOSE,RANDOM 97 mg/dL (74-106); MAGNESIUM 2.3 mg/dL (1.8-2.4)
[2022-01-17 09:15] LABS: PHOSPHOROUS 7.2 mg/dL (2.5-4.9)
[2022-01-17 09:17] LABS: BLOOD UREA NITROGEN 39.1 mg/dL (7-18); CREATININE 12.4 mg/dL (0.55-1.3)
[2022-01-17] MEDS: amLODIPine BESYLATE 10 MG TABLET (FP) PO SCH (10:40)
[2022-01-17] MEDS: LABETALOL HCL 200 MG TABLET (FP) PO SCH ×2 (10:40→22:20)
[2022-01-17] MEDS: LISINOPRIL 20 MG TABLET PO SCH (10:40)
[2022-01-17] MEDS: PANTOPRAZOLE 40 MG TABLET PO SCH (10:41)
[2022-01-17 11:08] LABS: ANISOCYTOSIS 1+; MACROCYTOSIS 1+; OVALOCYTE 1+
[2022-01-17] MEDS ORDERED: LIDOCAINE HCL 1%, 10 MG/ML (20ML VIAL) ONE (13:34)
[2022-01-17] MEDS ORDERED: MIDAZOLAM HCL 2 MG/2 ML SINGLE DOSE VIAL ONE (15:50)
[2022-01-17] MEDS ORDERED: SODIUM CHLORIDE 0.9% P/F 10 ML VIAL IJ ONE (15:57)
[2022-01-17] MEDS ORDERED: ceFAZolin SODIUM 1 GM VIAL ONE (15:57)
[2022-01-17] MEDS ORDERED: LIDOCAINE HCL 1%, 10 MG/ML (20ML VIAL) NR ONE (16:00)
[2022-01-17] MEDS ORDERED: HEPARIN NA (PORCINE) 5,000 UNITS/ML 1ML VIAL SQ ONE ×2 (16:00→16:10)
[2022-01-17] MEDS ORDERED: ceFAZolin SODIUM 1 GM VIAL IVPB ONE (16:00)
[2022-01-17] MEDS ORDERED: ACETAMINOPHEN 325 MG TABLET (FP) PO PRN (16:25)
[2022-01-17] MEDS ORDERED: SODIUM CHLORIDE 250 ML IV PRN ×2 (16:25→16:39)
[2022-01-18] MEDS: HEPARIN NA (PORCINE) 5,000 UNITS/ML 1ML VIAL SQ SCH ×2 (06:05→13:30)
[2022-01-18] MEDS: INSULIN SLIDING SCALE (NOVOLOG) 1 VIAL SQ SCH ×2 (06:05→12:21)
[2022-01-18 08:02] VITALS: TEMP 98.2
[2022-01-18] MEDS ORDERED: EPOETIN ALFA-EPBX 4,000 UNIT/ML VIAL IVPUSH ONE (09:00)
[2022-01-18] MEDS ORDERED: HEPARIN NA (PORCINE) 5,000 UNITS/ML 1ML VIAL IVPUSH ONE (09:50)
[2022-01-18] MEDS ORDERED: LISINOPRIL 20 MG TABLET PO SCH (10:00)
[2022-01-18] MEDS ORDERED: PANTOPRAZOLE 20 MG TABLET PO SCH ×2 (10:00)
[2022-01-18] MEDS ORDERED: amLODIPine BESYLATE 10 MG TABLET (FP) PO SCH (10:00)
[2022-01-18] MEDS: SEVELAMER CARBONATE 800 MG TAB (FP) PO SCH ×2 (10:12→12:20)
[2022-01-18] MEDS: LABETALOL HCL 200 MG TABLET (FP) PO SCH (12:04)
[2022-01-18 13:31] VITALS: BP 150/93; PULSE 90
[2022-01-18] MEDS ORDERED: hydrALAZINE HCL 50 MG TABLET (FP) PO SCH (14:00)
[2022-01-19] MEDS ORDERED: POLYETHYLENE GLYCOL (HEALTHYLAX) 3350 17 GM PACKET PO SCH (10:00)
== END 2022-01-18 15:00 | disposition home or self-care (01) ==
LOC: JER 18:39 → UNDOADMOB 01-16 03:40 → JERBED 01-16 03:40 → INTOOBSV 01-16 03:40 → JERBED 01-16 11:15 → J4S 01-16 11:15 → JERBED 01-16 11:51 → J4S 01-16 11:51
PROVIDERS: ADMIT Hospitalist; ATTEND Family Medicine
PROC: 0J2SXYZ Change Other Device in Head and Neck Subcutaneous Tissue and Fascia, External Approach (ICD-10-PCS; principal; 2022-01-16)
PROC: 3E03329 Introduction of Other Anti-infective into Peripheral Vein, Percutaneous Approach (ICD-10-PCS; 2022-01-16)
PROC: 3E033GC Introduction of Other Therapeutic Substance into Peripheral Vein, Percutaneous Approach (ICD-10-PCS; 2022-01-16)
PROC: 3E023GC Introduction of Other Therapeutic Substance into Muscle, Percutaneous Approach (ICD-10-PCS; 2022-01-16)
PROC: 3E013VG Introduction of Insulin into Subcutaneous Tissue, Percutaneous Approach (ICD-10-PCS; 2022-01-16)
DX: I13.2 Hypertensive heart and chronic kidney disease with heart failure and with stage 5 chronic kidney disease, or end stage renal disease (principal); N18.6 End stage renal disease; I16.1 Hypertensive emergency; E11.22 Type 2 diabetes mellitus with diabetic chronic kidney disease; Z99.2 Dependence on renal dialysis; R19.7 Diarrhea, unspecified; R53.1 Weakness; Z91.15 Patient's noncompliance with renal dialysis; I25.2 Old myocardial infarction; I08.1 Rheumatic disorders of both mitral and tricuspid valves; D64.9 Anemia, unspecified; R77.8 Other specified abnormalities of plasma proteins; I50.22 Chronic systolic (congestive) heart failure
CPT/HCPCS: 36415; 70450-TC; 71045-TC-FY; 71046-TC-FY; 74176-TC; 76000-TC-FY; 80048; 80051; 80053; 82962; 83735; 84100; 84484; 85025; 86803; 87045; 87046; 93005; 93010; 94760; 99285-25; C9803-CS; G0378; J1644; Q0162; Q5106; U0003; U0005

== ENCOUNTER 2022-06-18 09:24 | Inpatient (IN) | payer BC ==
[2022-06-18 10:16] VITALS: BMI 25.2
[2022-06-18 10:42] LABS: BASO % 1.2 % (0-2.0); EOS % 1.3 % (0-4.5); HEMATOCRIT 36.9 % (35.4-49); HEMOGLOBIN 11.8 GM/dL (11.7-16.9); LYMPH % 6.5 % (8-40); MCH 29.1 pg (25.7-33.7); MCHC 32.1 g/dl (32.0-35.9); MEAN CELL VOLUME 90.9 fl (80-96); MEAN PLT VOLUME 9.7 fl (7.5-11.1); MONO % 4.9 % (3.8-10.2); NEUT % 86.1 % (42.8-82.8); PLATELET COUNT 224 10^3/uL (134-434); RBC 4.06 M/mm3 (4.00-5.60); RDW 16.6 % (11.9-15.9)
[2022-06-18 10:43] LABS: CHLORIDE 104 mmol/L (98-107); SODIUM 141 mmol/L (136-145)
[2022-06-18] MEDS ORDERED: LABETALOL HCL 200 MG TABLET (FP) PO ONE (10:43)
[2022-06-18] MEDS ORDERED: amLODIPine BESYLATE 10 MG TABLET (FP) PO ONE (10:43)
[2022-06-18] MEDS ORDERED: hydrALAZINE HCL 50 MG TABLET (FP) PO ONE (10:43)
[2022-06-18 10:46] LABS: ANION GAP 14 MMOL/L (8-16); BLOOD UREA NITROGEN 66.2 mg/dL (7-18); CO2 23 mmol/L (21-32); MAGNESIUM 2.2 mg/dL (1.8-2.4)
[2022-06-18] MEDS ORDERED: LABETALOL HCL 100 MG TABLET (FP) ONE (10:49)
[2022-06-18 10:50] LABS: INR 1.08 (0.83-1.09); PROTHROMBIN TIME (PATIENT) 12.4 SEC (9.7-13.0)
[2022-06-18 10:51] LABS: TOT PROT 5.1 g/dl (6.4-8.2)
[2022-06-18 10:52] LABS: ALK PHOS 56 U/L (45-117)
[2022-06-18 10:53] LABS: ACTIVATED PTT 30.7 SECONDS (25.2-36.5)
[2022-06-18 10:57] LABS: ALBUMIN 2.5 g/dl (3.4-5.0); BILIRUBIN,TOTAL 0.4 mg/dL (0.2-1); CALCIUM 8.3 mg/dL (8.5-10.1); CREATININE 11.5 mg/dL (0.55-1.3); GLUCOSE,RANDOM 142 mg/dL (74-106); PHOSPHOROUS 5.9 mg/dL (2.5-4.9); SGOT/AST 29 U/L (15-37); SGPT/ALT 37 U/L (13-61)
[2022-06-18] MEDS ORDERED: SODIUM CHLORIDE 250 ML IV PRN (12:29)
[2022-06-18] MEDS ORDERED: METOCLOPRAMIDE HCL INJECTION 10 MG/2 ML VIAL IVPUSH ONE (21:06)
[2022-06-18] MEDS ORDERED: LABETALOL HCL 5 MG/1 ML (100MG/20 ML VIAL) IVPUSH ONE (21:36)
[2022-06-19] MEDS: hydrALAZINE HCL 50 MG TABLET (FP) PO SCH ×3 (06:35→21:10)
[2022-06-19 09:12] LABS: BASO % 1.3 % (0-2.0); EOS % 0.6 % (0-4.5); HEMATOCRIT 35.1 % (35.4-49); HEMOGLOBIN 11.5 GM/dL (11.7-16.9); LYMPH % 7.9 % (8-40); MCH 29.2 pg (25.7-33.7); MCHC 32.7 g/dl (32.0-35.9); MEAN CELL VOLUME 89.5 fl (80-96); MEAN PLT VOLUME 10.1 fl (7.5-11.1); MONO % 5.3 % (3.8-10.2); NEUT % 84.9 % (42.8-82.8); PLATELET COUNT 234 10^3/uL (134-434); RBC 3.92 M/mm3 (4.00-5.60)
[2022-06-19 09:13] LABS: CHLORIDE 102 mmol/L (98-107); SODIUM 139 mmol/L (136-145)
[2022-06-19 09:19] LABS: ANION GAP 15 MMOL/L (8-16); BLOOD UREA NITROGEN 84.3 mg/dL (7-18); CALCIUM 8.7 mg/dL (8.5-10.1); CO2 22 mmol/L (21-32); GLUCOSE,RANDOM 96 mg/dL (74-106)
[2022-06-19 09:20] LABS: ALBUMIN 2.7 g/dl (3.4-5.0)
[2022-06-19 09:22] LABS: SGPT/ALT 79 U/L (13-61)
[2022-06-19] MEDS: SEVELAMER CARBONATE 800 MG TAB (FP) PO SCH ×3 (09:22→18:54)
[2022-06-19 09:23] LABS: SGOT/AST 39 U/L (15-37)
[2022-06-19 09:24] LABS: BILIRUBIN,TOTAL 0.8 mg/dL (0.2-1); TOT PROT 5.3 g/dl (6.4-8.2)
[2022-06-19 09:25] LABS: ALK PHOS 61 U/L (45-117)
[2022-06-19 09:26] LABS: CREATININE 13.1 mg/dL (0.55-1.3)
[2022-06-19] MEDS: LABETALOL HCL 200 MG TABLET (FP) PO SCH ×3 (09:35→21:10)
[2022-06-19] MEDS ORDERED: HEPARIN NA (PORCINE) 5,000 UNITS/ML 1ML VIAL SQ SCH (10:00)
[2022-06-19] MEDS ORDERED: PANTOPRAZOLE 40 MG TABLET PO SCH (10:00)
[2022-06-19] MEDS ORDERED: LIDOCAINE HCL 1%, 10 MG/ML (20ML VIAL) ONE (16:12)
[2022-06-19] MEDS ORDERED: HEPARIN NA (PORCINE) 5,000 UNITS/ML 1ML VIAL ONE (16:12)
[2022-06-19] MEDS ORDERED: MIDAZOLAM HCL 2 MG/2 ML SINGLE DOSE VIAL ONE (16:49)
[2022-06-19] MEDS ORDERED: PROPOFOL 20 ML ONE (16:57)
[2022-06-19] MEDS ORDERED: ceFAZolin SODIUM 1 GM VIAL ONE (17:02)
[2022-06-19] MEDS ORDERED: HEPARIN NA (PORCINE) 5,000 UNITS/ML 1ML VIAL SQ ONE ×2 (17:10)
[2022-06-19] MEDS ORDERED: LIDOCAINE HCL 1%, 10 MG/ML (20ML VIAL) NR ONE ×2 (17:10)
[2022-06-19] MEDS ORDERED: SODIUM CHLORIDE 250 ML IV PRN (17:53)
[2022-06-19] MEDS: HEPARIN NA (PORCINE) 5,000 UNITS/ML 1ML VIAL SQ SCH (21:10)
[2022-06-20] MEDS ORDERED: traMADol HCL 50 MG TABLET PO PRN (01:38)
[2022-06-20] MEDS: hydrALAZINE HCL 50 MG TABLET (FP) PO SCH ×3 (05:25→21:21)
[2022-06-20] MEDS: LABETALOL HCL 200 MG TABLET (FP) PO SCH ×3 (05:25→21:21)
[2022-06-20] MEDS: SEVELAMER CARBONATE 800 MG TAB (FP) PO SCH ×3 (09:55→18:16)
[2022-06-20] MEDS: HEPARIN NA (PORCINE) 5,000 UNITS/ML 1ML VIAL SQ SCH ×2 (09:55→21:21)
[2022-06-20] MEDS: PANTOPRAZOLE 40 MG TABLET PO SCH (09:55)
[2022-06-20] MEDS ORDERED: LABETALOL HCL 100 MG TABLET (FP) PO ONE (19:09)
[2022-06-20] MEDS: amLODIPine BESYLATE 10 MG TABLET (FP) PO SCH (21:21)
[2022-06-21] MEDS: LABETALOL HCL 200 MG TABLET (FP) PO SCH (06:29)
[2022-06-21] MEDS: hydrALAZINE HCL 50 MG TABLET (FP) PO SCH (06:29)
[2022-06-21 08:33] VITALS: BP 135/78; PULSE 81; RESP 17; TEMP 97.5
[2022-06-21] MEDS: SEVELAMER CARBONATE 800 MG TAB (FP) PO SCH ×2 (08:33→14:24)
[2022-06-21] MEDS: amLODIPine BESYLATE 10 MG TABLET (FP) PO SCH (09:06)
[2022-06-21] MEDS: HEPARIN NA (PORCINE) 5,000 UNITS/ML 1ML VIAL SQ SCH (09:06)
[2022-06-21] MEDS: PANTOPRAZOLE 40 MG TABLET PO SCH (09:06)
== END 2022-06-21 12:34 | disposition home or self-care (01) | DRG 314 ==
LOC: JER 09:24 → JERBED 10:20 → J4S 18:42
PROVIDERS: ADMIT Family Medicine; ATTEND Family Medicine
PROC: 05HM33Z Insertion of Infusion Device into Right Internal Jugular Vein, Percutaneous Approach (ICD-10-PCS; 2022-06-19)
PROC: B513ZZA Fluoroscopy of Right Jugular Veins, Guidance (ICD-10-PCS; 2022-06-19)
PROC: 3E033GC Introduction of Other Therapeutic Substance into Peripheral Vein, Percutaneous Approach (ICD-10-PCS; 2022-06-19)
PROC: 05HY33Z Insertion of Infusion Device into Upper Vein, Percutaneous Approach (ICD-10-PCS; principal; 2022-06-19 16:30)
PROC: 5A1D70Z Performance of Urinary Filtration, Intermittent, Less than 6 Hours Per Day (ICD-10-PCS; 2022-06-20)
DX: T82.898A Other specified complication of vascular prosthetic devices, implants and grafts, initial encounter (principal); N18.6 End stage renal disease; I12.0 Hypertensive chronic kidney disease with stage 5 chronic kidney disease or end stage renal disease; Z99.2 Dependence on renal dialysis; Z91.14 Patient's other noncompliance with medication regimen; Y83.9 Surgical procedure, unspecified as the cause of abnormal reaction of the patient, or of later complication, without mention of misadventure at the time of the procedure
CPT/HCPCS: 0241U-QW; 36415; 71045-TC-FY; 71046-TC-FY; 71250-TC; 80053; 83735; 84100; 85025; 85610; 85730; 86803; 86850; 86900; 86901; 87340; 93005; 93010; 94760; 99285-25; C1750; J1644